=== PATIENT | female | born 1985 | race Caucasian/White ===

== ENCOUNTER 2017-05-12 09:39 | Emergency (ER) | payer OTHER ==
[~2017-05-12] VITALS: Ht 172.7 cm; Wt 63.5 kg
[2017-05-12 09:47] VITALS: BP 130/76
[2017-05-12] MEDS ORDERED: CYCLOBENZAPRINE10 MG ORAL (10:29)
[2017-05-12] MEDS ORDERED: TYLENOL EXTRA500 MG ORAL (10:29)
[2017-05-12 10:40] VITALS: BP 114/67
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
== END 2017-05-12 11:00 | disposition home or self-care (01) ==
LOC: EMR 10:23
DX: Z04.1 Encounter for examination and observation following transport accident (principal); Z88.0 Allergy status to penicillin
CPT/HCPCS: 99282